=== PATIENT | female | born 1990 | race Caucasian/White ===

== ENCOUNTER 2022-10-17 08:30 | Inpatient (IN) | payer SELFPAY, OTHER ==
[2022-10-17] VITALS (17 sets, daily range): BP systolic 93–123; BP diastolic 42–70; PULSE 64–91; RESP 16; TEMP 36.4–37.1; O2SAT 16–99; BMI 34.4
[2022-10-17 08:27] LABS: ROM Internal Control Test YES-OK TO RESULT pt. (Internal QC)
[2022-10-17 08:29] LABS: ROM Patient Test POSITIVE (Negative)
--- NOTE | 2022-10-17 09:35 | PCM.HP.BLA ---
History and Physical Date of Admission: 10/17/22 Chief complaint: Leakage of fluid History present illness: 32-year-old G4, P3 at 36 weeks and 2 days with BINA 11/12/2022 by LMP, concessions manager patient of [facility]. Arrives for leakage of clear fluid. Denies headache, visual change, chest pain, shortness of breath, nausea vomit, right upper quadrant pain. Patient states good movement. is complicated by history of section x2 Obstetric history: G1: Primary section for breech at term G2: Repeat section for nonreassuring heart tones at term G3: 40 weeks complicated by fourth degree laceration G4: Current Past medical history: None Medications: None Past surgical history: section x2 Allergies: No known drug allergies Social history: Denies smoking, alcohol, drug use Family history: Denies history DVT or PE Review of systems: Besides above pertinent positives a full review of systems was performed and found to be negative Physical exam: Vitals: Blood pressure 119/70 pulse 91 General: Normal-appearing no acute distress HEENT: Normocephalic/atraumatic no cervical of adenopathy Cardiac/respiratory: No use accessory muscles, nonlabored breathing Abdomen: Soft, nontender, gravid Extremities: No peripheral edema normal peripheral pulses Psych: Normal affect normal demeanor nonpressured speech Labs: ROM positive Assessment plan: 32-year-old G4, P3 at 36 weeks and 2 days SROM with history of 2 sections. Educated patient on SROM and delivery. Discussed risk with delivery, discussed Celestone risk benefits alternatives, patient states understanding wish to proceed with Celestone. Celestone given. Educated patient on 2 sections and risk benefits alternatives, patient for repeat section. 2 g Ancef and 500 mg of azithromycin. Discussed with anesthesia
[2022-10-17] MEDS: Lactated Ringers 1,000 ML 150 ML IV (09:45)
[2022-10-17 10:01] LABS: Absolute Lymphocyte Count 1.57 X10^3/uL (0.83-4.51); Absolute Neutrophil Count 8.8 X10^3/uL (2.0-7.7); Basophil# 0.02 X10^3/uL; Basophil% 0.2 % (0-1); Eosinophil# 0.07 X10^3/uL; Eosinophils% 0.6 % (0-5); Hematocrit 39.6 % (37-47); Hemoglobin 13.2 g/dL (12.0-15.0); Lymphocyte # 1.57 X10^3/ul (0.83-4.51); Lymphocyte % 14.1 % (19-41); Mean Corp Hgb Conc 33.3 g/dL (32-36); Mean Corpuscular Hgb 29.7 pg (27.0-32.0); Mean Platelet Vol. 9.6 fl (6.2-12.0); Monocyte# 0.57 X10^3/uL; Monocyte% 5.1 % (0-10); NRBC Flagged by Analyzer 0 % (0-5); Neutrophil # 8.81 X10^3/uL (2.7-7.7); Neutrophil % 79.5 % (47-70); Platelet Count 254 K/mm3 (150-450); RBC Distribution Width CV 13.2 % (11.6-14.6); RBC Distribution Width SD 42.9 fl (35.1-43.9); Red Blood Count 4.45 M/mm3 (4.2-5.4); White Blood Count 11.1 K/mm3 (4.4-11.0)
[2022-10-17] MEDS: Betamethasone/Betamethasone 30 MG/5 ML Vial 12 MG IM (10:20)
[2022-10-17] MEDS: Acetaminophen 500 MG Tablet 1000 MG PO ×3 (11:37→23:26)
[2022-10-17] MEDS: Lactated Ringers 1,000 ML 999 ML IV (11:38)
[2022-10-17 11:41] LABS: Group B Strep DNA By PCR Negative (Negative); Internal Control PASS; Probe Check PASS; Specimen Processing Control PASS
[2022-10-17] MEDS: Sodium Citrate/Citric Acid 30 ML UDC PO (12:43)
[2022-10-17] MEDS: Cefazolin 2 GM in 0.9% Normal Saline 100 ML IV (12:48)
--- NOTE | 2022-10-17 13:39 | EX.PCM.OBRPT ---
Details Operative Information Date of Procedure: 10/17/22 Pre-Operative Diagnosis: P PROM, history of section Post-Operative Diagnosis: P PROM, history of section Indications Narrative: Procedure: Repeat low transverse section Via Pfannenstiel incision Surgeon: Memo Chavira MD Anesthesia: Spinal EBL: 800 cc Urine output: 50 cc none IV fluids: 1000 cc Complications: None Specimen: None Findings: Female in vertex position Apgars 9/9. Normal uterus, tubes, and ovaries. Consent: Patient arrived with P PROM. History of section elects for repeat low-transverse section Via Pfannenstiel incision. Patient understands risk of the procedure include but are not limited to visceral or vascular injury, prolonged hospitalization, blood loss need for transfusion, reoperation. Patient state understanding wish to proceed. All questions were answered and consent was signed Procedure: Patient brought back to the OR where spinal anesthesia was found to be adequate. 2 g of Ancef and 500 mg of azithromycin were given for infection prophylaxis. Patient was prepared and draped in supine position with leftward tilt. A Pfannenstiel incision was made at the skin with a scalpel. Incision was carried down to the fascia with a scalpel. The fascia was excised and extended laterally. Inferior aspect of the fascia was grasped with a clamp and the underlying rectus and pyramidalis muscle were dissected off sharply with Thomas scissors. In a similar fashion the superior aspect of the fascia was grasped with a clamp and the underlying rectus muscle was dissected off sharply. Rectus muscle was dissected the midline down to the level of the pubic symphysis. Preperitoneal fatty tissue was noted and peritoneum was entered bluntly. Peritoneum was extended superiorly and inferiorly with good visualization of bladder. Bladder blade was inserted and vesicouterine peritoneum was identified. Low transverse hysterotomy was made. Hand was placed into the incision and gentle fundal pressure was applied once the bladder blade was removed and the head was brought into the incision. Head and shoulders were delivered with ease. Cord was cut and clamped. Baby is handed off to nursing. Placenta was delivered via cord traction and fundal massage. Uterus was exteriorized and wiped out with dry laparotomy sponge in order to remove remaining placental membranes. IV oxytocin was initiated in order to facilitate uterine contractions. Uterus closed in continuous running fashion. [id number] sutures were used for hemostasis. Good hemostasis was noted. Uterus was placed back into the abdominal cavity and the incision was reinspected, good hemostasis was noted. Fascia was closed with PDS suture in a continuous running fashion. Subcutaneous irrigation was performed. Good hemostasis was noted. Skin was closed in a subcuticular fashion. All counts were correct x2. Patient tolerated procedure well and was brought to recovery in stable condition. mechanical manager #1: Katlin Asencio
[2022-10-17 13:42] LABS: HIV - WCH Non-Reactive (Nonreactive); Hepatitis C Antibody Non-Reactive (Nonreactive)
[2022-10-17] MEDS: Oxytocin 15 Units/NS 250ml 15 UNITS/250 ML IV.SOLN 83 UNITS IV (13:57)
[2022-10-17] MEDS: Ketorolac 30 MG/ML Syringe IV ×2 (14:42→20:30)
[2022-10-17] MEDS: Lactated Ringers 1,000 ML 100 ML IV (17:00)
[2022-10-18] MEDS: Enoxaparin 40 MG/0.4 ML Syringe SC (01:14)
[2022-10-18] MEDS: Ketorolac 30 MG/ML Syringe IV ×2 (02:48→10:18)
[2022-10-18] MEDS: 0.9% Saline Lock 10 ML Syringe IV (02:49)
[2022-10-18] MEDS: Acetaminophen 500 MG Tablet 1000 MG PO ×2 (05:32→12:22)
[2022-10-18 05:36] VITALS: BP 105/50; PULSE 68; RESP 16; TEMP 36.6; O2SAT 97
[2022-10-18 05:51] LABS: Hematocrit 36.2 % (37-47); Mean Corp Hgb Conc 33.1 g/dL (32-36); Mean Corpuscular Hgb 30.1 pg (27.0-32.0); Mean Corpuscular Volume 90.7 fL (81-99); Mean Platelet Vol. 9.7 fl (6.2-12.0); Platelet Count 261 K/mm3 (150-450); Red Blood Count 3.99 M/mm3 (4.2-5.4); White Blood Count 19.8 K/mm3 (4.4-11.0)
[2022-10-18 07:35] VITALS: BP 106/53; PULSE 73; RESP 16; TEMP 36.5; O2SAT 97
--- NOTE | 2022-10-18 10:06 | PCM.DC.BLA ---
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 History of section elects for repeat section performed on 10/17/2022. Patient with routine postoperative recovery discharge home on 10/18/2022 Meaningful Use Info Meaningful Use Diagnoses (Choose all that apply): None applicable Discharge Plan Admission Admit Date/Time: 10/17/22 08:30 Primary Reason for Your Visit: P PROM Attending Provider: Memo Chavira Primary Care Provider: Dimitri Herrera Instructions Additional Instructions / Restrictions: Regular diet. Okay to shower. No tub baths for 2 weeks. No lifting over 25 pounds for 2 to 3 weeks. No intercourse for 4 to 6 weeks. Call if fevers, chills, chest pain, shortness of breath. Follow-up 2 weeks postoperatively Discharge Orders/Prescriptions Prescriptions: New oxycodone 5 mg tablet 5 mg PO Q6H PRN (Reason: pain (scale score 7-10)) 4 Days Qty: 16 0RF Continued Stress Formula Tablet 1 tab PO DAILY Prenatabs FA 29-1 mg Tablet 1 tab PO DAILY magnesium Rx Instructions: patient unsure of dose Referrals / Follow Up: Dimitri Herrera DO [Primary Care Provider] - Disposition Disposition (needs filled in before D/C Order can be placed): Home, Self Care
--- NOTE | 2022-10-18 10:08 | PCM.PN.OB ---
Subjective Subjective No overnight complaints. Pain well controlled Objective Data Objective Data Vital Signs: Vital Signs Temp Pulse Resp BP Pulse Ox O2 Del Method 97.7 F L 73 16 106/53 L 97 Room Air 10/18/22 07:35 10/18/22 07:35 10/18/22 07:35 10/18/22 07:35 10/18/22 07:35 10/18/22 07:35 Oxygen Delivery Method Room Air Weight: 201 lb 0.985 oz Body Mass Index (BMI) 34.4 Intake & Output: Intake and Output for Last 24 Hours 10/16/22 10/17/22 10/18/22 23:59 23:59 23:59 Intake Total 2420.0 / 2420.0 800 / 800 Output Total 1500 / 1500 800 / 800 Balance 920.0 / 920.0 0 / 0 Lab / Micro Data Result Diagrams: 10/18/22 05:40 Labs: Laboratory Results - last 24 hr 10/17/22 09:45: Blood Type A POSITIVE, Antibody Screen NEGATIVE 10/17/22 09:45: Hepatitis C Antibody Non-Reactive, HIV 1&2 Antibody Non-Reactive 10/17/22 10:20: Group B Strep DNA Negative, Specimen Comment Not Reportable 10/18/22 05:40: WBC 19.8 H, RBC 3.99 L, Hgb 12.0, Hct 36.2 L, MCV 90.7, MCH 30.1, MCHC 33.1, RDW Std Deviation 43.0, RDW Coeff of Nicolle 13.0, Plt Count 261, MPV 9.7 Physical Exam Const alert, oriented x3, no apparent distress, average body habitus, healthy appearing and well nourished HEENT normocephalic and moist oral mucous membranes Eyes PERRL Neck full ROM Resp normal respiratory effort, no retractions and no use of accessory muscles GI GI Narrative: Soft, nontender, bandage clean dry and intact Extremity normal to inspection, full ROM and no clubbing, cyanosis or edema Neuro moves all extremities and no focal motor deficits Psych mental status grossly normal, affect normal, speech normal and activity/motor behavior normal Assessment & Plan (1) delivery delivered: PLAN: Postop day 1 status post repeat section at 36 weeks for P PROM and history of section. Breast-feeding. Pain well controlled. Discussed with fruit bar maker okay to go home today
[2022-10-18 12:00] VITALS: BP 108/53; PULSE 65; RESP 16; TEMP 36.5
[2022-10-18] MEDS: Senna/Docusate Sodium 1 Tablet PO (12:21)
[2022-10-18] MEDS: Ibuprofen 600 MG Tablet PO (15:17)
[2022-10-18 16:00] VITALS: BP 132/54; PULSE 70; RESP 16; TEMP 36.5; O2SAT 97
[2022-10-18 17:19] VITALS: BP 132/54; PULSE 70; RESP 16; TEMP 36.3
== END 2022-10-18 17:36 | disposition home or self-care (01) | DRG 788 ==
LOC: WPOUT 08:34 → WP 08:35
PROVIDERS: Admitting Provider Obstetrics & Gynecology; PCP Family Medicine; Referring Provider Obstetrics & Gynecology; Visit Provider Obstetrics & Gynecology
DX: O42.913 Preterm premature rupture of membranes, unspecified as to length of time between rupture and onset of labor, third trimester (principal); O34.211 Maternal care for low transverse scar from previous cesarean delivery; Z3A.36 36 weeks gestation of pregnancy; Z37.0 Single live birth
CPT/HCPCS: 59025; 59050; 84112; 85025; 85027; 86703; 86803; 86850; 86900; 86901; 87081; 87653; 99218; J7120; A4216; G0378; J0702; J2405